=== PATIENT | male | born 1955 | race African-American/Black ===

== ENCOUNTER 2023-09-18 17:03 | Emergency (ER) | payer MEDICARE, OTHER ==
[2023-09-18] MEDS ORDERED: Aspirin Chewable 81 MG TAB ONE (17:23)
[2023-09-18 17:34] LABS: #Basophils 0.1 thou/uL (0.0-0.2); #Eosinphils 0.4 thou/uL (0.0-0.7); #Lymphocytes 3.1 thou/uL (1.20-3.40); #Monocytes 0.5 thou/uL (0.11-0.59); #Neutrophils 4.1 thou/uL (1.40-6.50); %Basophils 0.9 % (0.0-1.0); %Eosinophils 4.4 % (0.0-10.0); %Lymphocytes 37.9 % (21.0-51.0); %Monocytes 6.1 % (0.0-10.0); %Neutrophils 50.7 % (42.0-75.0); Hematocrit 45.4 % (42.0-52.0); Hemoglobin 13.2 g/dL (14.0-18.0); Mean Corpuscular Hemoglobin 26.3 pg (27.0-31.0); Mean Corpuscular Volume 90.4 fl (78.0-98.0); Mean Platelet Volume 7.2 fL (7.4-10.4); Platelet Count 242 10x3/uL (130-400); Red Blood Cell (RBC) Count 5.02 mill/uL (4.70-6.10); White Blood Cell (WBC) Count 8.1 10x3/uL (4.8-10.8)
[2023-09-18 17:37] LABS: INR-International Normal Ratio 1.1; Prothrombin Time 14.6 sec (12.0-14.7)
[2023-09-18 17:38] LABS: PTT 30.9 sec (22.9-36.1)
[2023-09-18 17:40] LABS: D-Dimer Test 0.36 mcg/mL (0.27-0.43)
[2023-09-18 17:47] LABS: Anion Gap 12 mmol/L (10-20); BUN (Urea Nitrogen) 9 mg/dL (8.4-25.7); Calc. Creatinine Clearance 0 mL/min (70-130); Calcium 8.7 mg/dL (7.8-10.44); Carbon Dioxide 22 mmol/L (23-31); Chloride 108 mmol/L (98-107); Estimated GFR 71; Glucose 133 mg/dL (80-115); Lipase 16 U/L (8-78); Potassium 3.3 mmol/L (3.5-5.1); Sodium 139 mmol/L (136-145)
[2023-09-18 17:49] LABS: Troponin I Less than 0.010 ng/mL (< 0.028)
== END 2023-09-18 18:56 | disposition home or self-care (01) ==
LOC: MADERS 17:03
DX: R07.9 Chest pain, unspecified (principal); I31.39 Other pericardial effusion (noninflammatory); E78.00 Pure hypercholesterolemia, unspecified; I10 Essential (primary) hypertension; F17.200 Nicotine dependence, unspecified, uncomplicated; Z79.899 Other long term (current) drug therapy
CPT/HCPCS: 71045; 80048; 83690; 83880; 84484; 85025; 85379; 85610; 85730; 93005